=== PATIENT | male | born 1950 | race Two or more races ===

== ENCOUNTER 2024-04-26 16:23 | Inpatient (IN) | payer OTHER ==
[~2024-04-26] VITALS: Ht 170.2 cm; Wt 80.7 kg
[2024-04-26 20:00] VITALS: BP 184/95; TEMP 98.2; O2SAT 98
[2024-04-26] MEDS ORDERED: Z GUARD REMEDY 4 OZ OINT TP PRN (21:30)
[2024-04-26] MEDS ORDERED: ACETAMINOPHEN 325 MG TABLET PO PRN (21:30)
[2024-04-26] MEDS ORDERED: ONDANSETRON HCL/PF 4 MG/2 ML VIAL IVP PRN (21:30)
[2024-04-26] MEDS: ATORVASTATIN 40 MG TABLET PO SCH (22:49)
[2024-04-27] VITALS: BP 184/88; TEMP 97.9; O2SAT 99
[2024-04-27 04:00] VITALS: BP 137/74; TEMP 97.7; O2SAT 98
[2024-04-27 08:00] VITALS: BP 145/71; TEMP 98.1; O2SAT 98
[2024-04-27 08:01] LABS: BASOPHILS % (AUTO) 0.8 % (0.0-2.0); EOSINOPHILS # (AUTO) 0.1 K/uL (0.0-0.7); EOSINOPHILS % (AUTO) 1.9 % (0.0-6.0); HEMATOCRIT 45 % (39-51); HEMOGLOBIN 15.3 g/dL (13.5-17.5); LYMPHOCYTES # (AUTO) 1.1 K/uL (0.8-4.8); LYMPHOCYTES % (AUTO) 20.5 % (20.0-44.0); MEAN CORPUSCULAR HEMOGLOBIN 31 PG (26.0-33.0); MEAN CORPUSCULAR HGB CONC 34 g/dl (31.0-36.0); MEAN CORPUSCULAR VOLUME 89 fL (80-96); MONOCYTES # (AUTO) 0.4 K/uL (0.1-1.30); MONOCYTES % (AUTO) 7.4 % (2.0-12.0); NEUTROPHILS # (AUTO) 3.8 K/uL (1.8-8.9); NEUTROPHILS % (AUTO) 69.4 % (43.0-81.0); PLATELET COUNT (AUTO) 239 K/uL (150-450); RED BLOOD CELL COUNT(AUTO) 5.01 MIL/uL (4.5-6.0); RED CELL DISTRIBUTION WIDTH 13.7 % (11.5-15.0); WHITE BLOOD COUNT (AUTO) 5.4 K/uL (4.3-11.0)
[2024-04-27 08:03] LABS: ALANINE AMINOTRANSFERASE 21 U/L (12-78); ALBUMIN 3.2 g/dL (3.4-5.0); ALKALINE PHOSPHATASE 68 U/L (46-116); ASPARTATE AMINOTRANSFERASE 14 U/L (15-37); BILIRUBIN,DIRECT 0.1 mg/dL (0.0-0.2); BILIRUBIN,TOTAL 0.6 mg/dL (0.2-1.0); CALCIUM, SERUM 9.3 mg/dL (8.5-10.1); CARBON DIOXIDE 27 mmol/L (21-32); CHLORIDE 105 mmol/L (98-107); CREATININE 0.9 mg/dL (0.6-1.3); GLUCOSE 105 mg/dL (74-106); MAGNESIUM 2.2 mg/dL (1.8-2.4); PHOSPHORUS 3.3 mg/dL (2.5-4.9); POTASSIUM 3.8 mmol/L (3.5-5.1); SODIUM SERUM 140 mmol/L (136-145); TOTAL PROTEIN, SERUM 6.8 g/dL (6.4-8.2); UREA NITROGEN, BLOOD 10 mg/dL (7-18)
[2024-04-27 08:17] LABS: CHOLESTEROL 186 mg/dL (<200); HDL CHOLESTEROL 55 mg/dL (40-60); LDL 113 mg/dL (0-99); TRIGLYCERIDES 71 mg/dL (30-150)
[2024-04-27] MEDS: PANTOPRAZOLE 40 MG TABLET.DR PO SCH (09:13)
[2024-04-27] MEDS: CLOPIDOGREL BISULFATE 75 MG TABLET PO SCH (09:13)
[2024-04-27] MEDS: ASPIRIN 81 MG TAB.CHEW PO SCH (09:13)
[2024-04-27 11:40] LABS: THYROID STIMULATING HORMONE 1.56 uIU/mL (0.358-3.74)
[2024-04-27 12:00] VITALS: BP 148/82; TEMP 97.3; O2SAT 99
[2024-04-27 16:00] VITALS: BP 140/73; TEMP 97.9; O2SAT 99
[2024-04-27 20:00] VITALS: BP 158/88; TEMP 98.1; O2SAT 96
[2024-04-28] VITALS: BP 159/92; TEMP 97.9; O2SAT 98
[2024-04-28 04:00] VITALS: BP 157/97; TEMP 97.9; O2SAT 97
[2024-04-28 08:00] VITALS: BP 134/81; TEMP 97.3; O2SAT 99
[2024-04-28] MEDS ORDERED: ASPI-1169 PO (08:37)
[2024-04-28] MEDS ORDERED: ATOR40TA PO (08:37)
[2024-04-28] MEDS ORDERED: CLOP75TA15 PO (08:37)
[2024-04-28] MEDS ORDERED: LISI2.5T2 PO (08:41)
[2024-04-30 01:06] LABS: HEPATITIS B CORE AB, IgM Negative (Negative); HEPATITIS B CORE AB, TOTAL Negative (Negative); HEPATITIS B SURFACE AB Non Reactive (.); HEPATITIS Be AG Negative (Negative)
[2024-04-30 05:11] LABS: HEPATITIS Be AB Non Reactive (Negative)
== END 2024-04-28 10:53 | disposition home health service (06) | DRG 199 ==
LOC: TELE1 20:05
PROVIDERS: ADMIT Nurse Practitioner Family; ATTEND Nurse Practitioner Acute Care
DX: I16.1 Hypertensive emergency (principal); E44.1 Mild protein-calorie malnutrition; G45.9 Transient cerebral ischemic attack, unspecified; E88.09 Other disorders of plasma-protein metabolism, not elsewhere classified; I10 Essential (primary) hypertension; Z91.199 Patient's noncompliance with other medical treatment and regimen due to unspecified reason; E66.3 Overweight; Z68.27 Body mass index [BMI] 27.0-27.9, adult; R47.02 Dysphasia; R47.1 Dysarthria and anarthria; Z79.02 Long term (current) use of antithrombotics/antiplatelets; Z79.82 Long term (current) use of aspirin; Z79.899 Other long term (current) drug therapy; R29.700 NIHSS score 0; G81.91 Hemiplegia, unspecified affecting right dominant side
CPT/HCPCS: 36415; 70551-TC; 80048-TC; 80061-TC; 80076-TC; 82607-TC; 83735-TC; 83921; 84100-TC; 84443-TC; 85025-TC; 86704; 86705; 86706; 86707; 86803; 87081-TC; 87340; 87350; 93307-TC; 97112-TC; 97116-TC; 97530-TC; G0378